=== PATIENT | female | born 2000 | race African-American/Black ===

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

== ENCOUNTER 2023-09-01 13:13 | Emergency (ER) | payer MEDICAID, OTHER ==
[~2023-09-01] VITALS: Ht 170.2 cm; Wt 67.0 kg
[2023-09-01 13:17] VITALS: BP 121/84; PULSE 87; RESP 12; TEMP 98.5; O2SAT 100
[2023-09-01] MEDS ORDERED: IBUP-2029 MT (14:01)
[2023-09-01] MEDS ORDERED: BO1 TP (14:01)
[2023-09-01] MEDS: TETANUS, DIPHTHERIA, PERTUSSIS VAC/PF 0.5ML (>10YR OLD) IM ONE (14:04)
[2023-09-01] MEDS: LIDOCAINE HCL/PF 1% 10 MG/ML 5ML VIAL INFIL ONE (14:04)
[2023-09-01] MEDS: IBUPROFEN 600MG TABLET PO ONE (14:04)
[2023-09-01] MEDS: BACITRACIN ZINC OINT UDPKT TOP ONE (14:04)
== END 2023-09-01 14:14 | disposition home or self-care (01) ==
LOC: ER 13:13
DX: S61.411A Laceration without foreign body of right hand, initial encounter (principal); F12.10 Cannabis abuse, uncomplicated; X58.XXXA Exposure to other specified factors, initial encounter; Y93.89 Activity, other specified; Y92.89 Other specified places as the place of occurrence of the external cause; Y99.8 Other external cause status
CPT/HCPCS: 90715; 12001; 90471; 99283; J3490; Z7610

== ENCOUNTER 2023-09-19 03:33 | Emergency (ER) | payer MEDICAID ==
[~2023-09-19] VITALS: Ht 167.6 cm; Wt 59.0 kg
[~2023-09-19 03:33] MED LIST: BO1 TP; IBUP-2029 MT
[2023-09-19 03:40] VITALS: BP 126/84; PULSE 74; RESP 16; TEMP 97.6; O2SAT 100
[2023-09-19 04:07] LABS: BASOPHILS % 0.5 % (0.0-2.0); DIFFERENTIAL COMMENT 0; EOSINOPHILS % 1.7 % (0.0-5.0); HEMOGLOBIN. 13.2 g/dL (12.0-16.0); LYMPHOCYTES % 37.4 % (20.0-50.0); MEAN CORPUSCULAR HEMOGLOBIN 23.5 pg (28.0-32.0); MEAN CORPUSCULAR HGB CONC 32.2 g/dL (31.0-37.0); MEAN CORPUSCULAR VOLUME 72.8 fL (81.0-99.0); MEAN PLATELET VOLUME 8.3 fl (7.4-10.4); MONOCYTES % 8.8 % (2.0-8.0); NEUTROPHILS % 51.6 % (40.0-76.0); PLATELET 297 x1000/uL (130-400); RED BLOOD CELL COUNT 5.63 mill/uL (4.2-5.4); RED CELL DISTRIBUTION WIDTH 14.9 % (11.6-14.6)
[2023-09-19 04:17] LABS: PROTHROMBIN TIME 10.9 sec (9.6-11.0)
[2023-09-19 04:22] LABS: ALANINE AMINOTRANSFERASE 18 IU/L (10-49); ALBUMIN 5.1 g/dL (3.2-4.8); ASPARTATE AMINOTRANSFERASE 24 IU/L (<34); BILIRUBIN TOTAL 0.3 mg/dL (0.1-1.0); CARBON DIOXIDE 27 mEq/L (21-32); CHLORIDE 103 mEq/L (98-107); CREATININE 0.8 mg/dL (0.6-1.0); GLUCOSE 111 mg/dL (70-105); POTASSIUM 3.7 mEq/L (3.5-5.1); PROTEIN TOTAL 8.9 g/dL (6.0-8.3); SODIUM 136 mEq/L (136-145); UREA NITROGEN BLOOD 7 mg/dL (9-23)
[2023-09-19 04:28] LABS: HCG SCREEN NEGATIVE
[2023-09-19 04:59] LABS: ETHANOL BLOOD < 10 mg/dL (<10)
[2023-09-19] MEDS ORDERED: DICY20TA2 MT (05:55)
[2023-09-19] MEDS ORDERED: ONDA4TAB11 PO (05:55)
[2023-09-19] MEDS: ONDANSETRON 4MG ODT PO ONE (06:04)
[2023-09-19] MEDS: DICYCLOMINE HCL 10MG CAPSULE PO NR (06:04)
[2023-09-19] MEDS: DICYCLOMINE HCL 10MG CAPSULE PO ONE (06:04)
[2023-09-19] MEDS: ONDANSETRON 4MG ODT PO NR (06:06)
== END 2023-09-19 06:25 | disposition home or self-care (01) ==
LOC: ER 03:33
DX: R11.2 Nausea with vomiting, unspecified (principal); R19.7 Diarrhea, unspecified; R10.9 Unspecified abdominal pain
CPT/HCPCS: 80053; 80320; 84703; 83690; 85025; 85610; 36415; 99283; Q0162; G0480

== ENCOUNTER 2023-11-25 14:44 | Emergency (ER) | payer MEDICAID ==
[~2023-11-25] VITALS: Ht 165.1 cm; Wt 65.7 kg
[~2023-11-25 14:44] MED LIST changes: +DICY20TA2 MT; +ONDA4TAB11 PO
[2023-11-25 15:03] VITALS: BP 143/87; PULSE 92; RESP 16; TEMP 97.9; O2SAT 96
[2023-11-25 15:54] LABS: BASOPHILS % 0.6 % (0.0-2.0); DIFFERENTIAL COMMENT 0; HEMATOCRIT. 38.4 % (36.0-48.0); HEMOGLOBIN. 12.3 g/dL (12.0-16.0); LYMPHOCYTES % 40.8 % (20.0-50.0); MEAN CORPUSCULAR HEMOGLOBIN 23.4 pg (28.0-32.0); MEAN CORPUSCULAR HGB CONC 32.1 g/dL (31.0-37.0); MEAN PLATELET VOLUME 8.7 fl (7.4-10.4); MONOCYTES % 6.5 % (2.0-8.0); NEUTROPHILS % 50.1 % (40.0-76.0); PLATELET 273 x1000/uL (130-400); RED BLOOD CELL COUNT 5.26 mill/uL (4.2-5.4); RED CELL DISTRIBUTION WIDTH 14.6 % (11.6-14.6); WHITE BLOOD COUNT 6.5 x1000/uL (4.5-11.0)
[2023-11-25 16:00] LABS: CARBON DIOXIDE 26 mEq/L (21-32); CHLORIDE 106 mEq/L (98-107); POTASSIUM 3.5 mEq/L (3.5-5.1); SODIUM 137 mEq/L (136-145)
[2023-11-25 16:01] LABS: CALCIUM 9.5 mg/dL (8.7-10.4)
[2023-11-25 16:06] LABS: CREATININE 0.9 mg/dL (0.6-1.0); GLUCOSE 113 mg/dL (70-105); UREA NITROGEN BLOOD 6 mg/dL (9-23)
[2023-11-25 16:35] LABS: CLARITY URINE CLEAR (CLEAR); COLOR URINE YELLOW (YELLOW); GLUCOSE URINE NEGATIVE (NEGATIVE); KETONES URINE NEGATIVE (NEGATIVE); LEUKOCYTE ESTERASE URINE TRACE (NEGATIVE); NITRITE URINE NEGATIVE (NEGATIVE); OCCULT BLOOD URINE 3+ (NEGATIVE); PROTEIN URINE NEGATIVE (NEGATIVE); SPECIFIC GRAVITY URINE 1.009 (1.005-1.030); UROBILINOGEN URINE 0.2 E.U./dL (0.2-1.0)
[2023-11-25 16:53] LABS: BACTERIA URINE 1+; RBC URINE 15-25 /hpf (0-2); SQUAMOUS EPITHELIAL CELL URINE FEW /lpf (RARE/1+)
[2023-11-25 17:01] LABS: ALANINE AMINOTRANSFERASE 9 IU/L (10-49); ALBUMIN 4.1 g/dL (3.2-4.8); ASPARTATE AMINOTRANSFERASE 18 IU/L (<34); BILIRUBIN TOTAL 0.3 mg/dL (0.1-1.0); PROTEIN TOTAL 7.7 g/dL (6.0-8.3)
[2023-11-25] MEDS: ACETAMINOPHEN 325MG TABLET PO ONE (17:04)
[2023-11-25 17:09] LABS: HCG SCREEN NEGATIVE
[2023-11-25 17:18] LABS: BILIRUBIN DIRECT < 0.1 mg/dL (<=3.0)
[2023-11-25] MEDS ORDERED: NITR-87 MT (19:33)
[2023-11-25] MEDS ORDERED: IBUP-2028 MT (19:33)
== END 2023-11-25 19:42 | disposition home or self-care (01) ==
LOC: ER 14:44
DX: N39.0 Urinary tract infection, site not specified (principal); N93.8 Other specified abnormal uterine and vaginal bleeding; F12.10 Cannabis abuse, uncomplicated
CPT/HCPCS: 36415; 74176; 76830; 76856; 80048; 80076; 81003; 84703; 85025; 99284